=== PATIENT | female | born 1995 | race Caucasian/White ===

== ENCOUNTER → 2016-10-09 | Outpatient (CLI) | payer BC, MEDICAID ==
--- NOTE | 2016-10-09 14:28 | Diagnostic Imaging Report ---
PROCEDURE: US OB SINGLE FETUS <14 WKS. TECHNIQUE: Multiple real-time grayscale images were obtained over the gravid uterus in various projections. INDICATION: Uncertain dates. There are no prior studies available for comparison. There is a gestational sac within the uterus containing a single live fetus. heart motion was noted, and a rate of 167 bpm was recorded. The crown-rump length suggests the estimated gestational age is 8 weeks 6 days +/- 1 week. There were no obvious abnormalities identified. The amniotic fluid volume is within normal limits. At this time it is not certain where the placenta will develop. There is no pelvic mass or free fluid collection noted. Neither ovary was identified, however. IMPRESSION: 1. There is a single live intrauterine approximately 8 weeks 6 days gestation +/- 1 week. The EDC is 05/15/2017. 2. There are no obvious abnormalities identified. If a more sensitive evaluation of the anatomy is desired, then a short-term (10 to 12-week) followup ultrasound exam should be obtained. 3. There is no pelvic mass or free fluid collection noted. Dictated by: Dictated on workstation # [id number]
== END ==
LOC: RAD 10:41
PROVIDERS: ATTEND Family Medicine
DX: Z34.01 Encounter for supervision of normal first pregnancy, first trimester (principal)
CPT/HCPCS: 76801